=== PATIENT | female | born 1980 | race Caucasian/White ===

== ENCOUNTER 2018-12-25 10:03 | Emergency (ER) | payer OTHER ==
[~2018-12-25] VITALS: Ht 167.6 cm; Wt 100.0 kg
[2018-12-25 10:41] LABS: BASO # 0.1 (0.02-0.10); EOS # 0.1 (0.04-0.40); EOS % 0.9 % (1.0-5.0); HEMATOCRIT 41.6 % (37.0-47.0); HEMOGLOBIN 13.5 g/dL (12.5-16.0); LYMPH# 3.6 (1.50-4.00); MEAN CELL VOLUME 93 fl (78-100); MEAN CORPUSCULAR HEMOGLOBIN 30 pg (27-31); MEAN CORPUSCULAR HGB CONC 33 g/dL (33-37); MEAN PLATELET VOLUME 8.7 fl (7.4-10.4); MONO # 0.6 (0.20-0.80); NEU # 5.7 (1.40-6.50); PLATELET COUNT 356 K/mm3 (130-400); RED BLOOD COUNT 4.48 M/mm3 (4.10-5.30); RED CELL DISTRIBUTION WIDTH 13.8 % (11.5-14.5); WHITE BLOOD COUNT 10.1 K/mm3 (4.8-10.8)
[2018-12-25 11:08] LABS: ALBUMIN 4.1 g/dL (3.5-5.0); CALCIUM 9.5 mg/dL (8.3-10.5); POTASSIUM 3.9 mmol/L (3.5-5.1); TOTAL BILIRUBIN 0.3 mg/dL (0.2-1.2)
[2018-12-25] MEDS ORDERED: PROTONIX20 M1 PO (11:50)
[2018-12-25 11:59] VITALS: BP 148/78
== END 2018-12-25 12:01 | disposition home or self-care (01) ==
LOC: ED 10:03
PROVIDERS: Nurse Practitioner Primary Care
DX: K29.00 Acute gastritis without bleeding (principal); K21.9 Gastro-esophageal reflux disease without esophagitis; M79.7 Fibromyalgia; F41.9 Anxiety disorder, unspecified; F17.210 Nicotine dependence, cigarettes, uncomplicated; Z86.19 Personal history of other infectious and parasitic diseases
CPT/HCPCS: J2270; J2405; J3490; J7030

== ENCOUNTER 2019-01-23 09:32 | Emergency (ER) | payer OTHER ==
[~2019-01-23 09:32] MED LIST: PROTONIX20 M1 PO
[2019-01-23] MEDS ORDERED: PERCOCET 325 MG1 TA2 PO (10:25)
[2019-01-23] MEDS ORDERED: CEPHALEXIN500 M1 PO (10:26)
[2019-01-23 10:34] VITALS: BP 168/97
== END 2019-01-23 10:30 | disposition home or self-care (01) ==
LOC: ED 09:32
DX: K08.89 Other specified disorders of teeth and supporting structures (principal); F41.9 Anxiety disorder, unspecified; K21.9 Gastro-esophageal reflux disease without esophagitis; B19.20 Unspecified viral hepatitis C without hepatic coma; M79.7 Fibromyalgia; F17.210 Nicotine dependence, cigarettes, uncomplicated; Z88.0 Allergy status to penicillin
CPT/HCPCS: J1885; J2550

== ENCOUNTER 2019-01-26 13:28 | Emergency (ER) | payer OTHER ==
[~2019-01-26] VITALS: Ht 165.1 cm; Wt 100.0 kg
[~2019-01-26 13:28] MED LIST changes: +CEPHALEXIN500 M1 PO; +PERCOCET 325 MG1 TA2 PO
[2019-01-26] MEDS ORDERED: ZOFRAN4 M2 PO (15:17)
[2019-01-26] MEDS ORDERED: PERCOCET 325 MG1 TA2 PO (15:17)
[2019-01-26 16:11] VITALS: BP 147/86
== END 2019-01-26 15:52 | disposition home or self-care (01) ==
LOC: ED 13:28
DX: K08.89 Other specified disorders of teeth and supporting structures (principal)
CPT/HCPCS: J1885; J2405

== ENCOUNTER 2019-03-13 10:04 | Emergency (ER) | payer OTHER ==
[~2019-03-13] VITALS: Ht 165.1 cm; Wt 104.5 kg
[~2019-03-13 10:04] MED LIST changes: +ZOFRAN4 M2 PO
[2019-03-13 10:24] VITALS: BP 123/70
[2019-03-13] MEDS ORDERED: GOOD NEIGHBOR200 M1 PO (10:34)
[2019-03-13 10:42] LABS: BASO # 0.1 (0.02-0.10); EOS # 0.1 (0.04-0.40); HEMATOCRIT 38.9 % (37.0-47.0); HEMOGLOBIN 12.7 g/dL (12.5-16.0); LYMPH# 2.6 (1.50-4.00); MEAN CELL VOLUME 92 fl (78-100); MEAN CORPUSCULAR HEMOGLOBIN 30 pg (27-31); MEAN CORPUSCULAR HGB CONC 33 g/dL (33-37); MEAN PLATELET VOLUME 8.7 fl (7.4-10.4); MONO # 0.6 (0.20-0.80); NEU # 5.6 (1.40-6.50); PLATELET COUNT 354 K/mm3 (130-400); RED BLOOD COUNT 4.21 M/mm3 (4.10-5.30); RED CELL DISTRIBUTION WIDTH 13.1 % (11.5-14.5)
[2019-03-13 11:03] LABS: POTASSIUM 4.6 mmol/L (3.5-5.1)
[2019-03-13 11:04] LABS: CALCIUM 9.5 mg/dL (8.3-10.5)
[2019-03-13 11:05] LABS: TOTAL PROTEIN 7.2 g/dL (6.4-8.3)
[2019-03-13 11:07] LABS: TOTAL BILIRUBIN 0.2 mg/dL (0.2-1.2)
[2019-03-13] MEDS ORDERED: PERCOCET 325 MG1 TA2 PO (12:49)
== END 2019-03-13 13:00 | disposition home or self-care (01) ==
LOC: ED 10:04
PROVIDERS: Nurse Practitioner Primary Care
DX: M79.7 Fibromyalgia (principal); F41.9 Anxiety disorder, unspecified; F17.210 Nicotine dependence, cigarettes, uncomplicated
CPT/HCPCS: J1885